=== PATIENT | female | born 1985 | race Hispanic/Latino ===

== ENCOUNTER 2022-05-19 23:35 | Emergency (ER) | payer SELFPAY ==
[~2022-05-19] VITALS: Ht 160 cm; Wt 83.5 kg
--- OUTSIDE RECORDS SUMMARY | 2022-05-20 01:12 | XMS ---
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 VISIT COUNT (12 MO.) 1 [facility] 2 [place] [facility] 1 [facility] TOTAL 4 NOTE: Visits indicate total known visits. ED/UCC VISIT TRACKING (12 MO.) 05/19/2022 23:36 [facility] Edward TYPE: Emergency COMPLAINT: - RIGHT [facility]J [facility] DIAGNOSES: - Nausea - Right upper quadrant pain - Other acute postprocedural pain - Other acute postprocedural pain 08/15/2021 13:30 [place] [facility] [place] TYPE: Emergency DIAGNOSES: - Calculus of bile duct without cholangitis or cholecystitis without obstruction - Personal history of nicotine dependence - Contact with and (suspected) exposure to COVID-19 - Calculus of bile duct without cholangitis or cholecystitis without obstruction 08/08/2021 00:39 [facility] TYPE: Emergency DIAGNOSES: - abd pain - Left upper quadrant pain INPATIENT VISIT TRACKING (12 MO.) No inpatient visits to display in this time frame [id number]
== END 2022-05-20 00:15 | disposition home or self-care (01) ==
LOC: ED 23:35
DX: S83.91XA Sprain of unspecified site of right knee, initial encounter (principal); W19.XXXA Unspecified fall, initial encounter
CPT/HCPCS: 73560; 99283-25

== ENCOUNTER 2025-02-17 17:39 | Emergency (ER) | payer SELFPAY ==
[~2025-02-17] VITALS: Ht 160 cm; Wt 100.0 kg
[~2025-02-17 17:39] MED LIST: AMITRIPTYLINE100 MG; MACROBID 100 M100 MG PO; TRAMADOL HCL50 MG PO
[2025-02-17] MEDS ORDERED: ONDANSETRON ODT8 MG PO (20:19)
[2025-02-17] MEDS ORDERED: ALBUTEROL SULFATE 8 GM HOME.PACK INH ONE (20:30)
[2025-02-17] MEDS ORDERED: ONDANSETRON 4 MG HOME.PACK SL ONE (20:30)
[2025-02-17 21:18] VITALS: BP 118/84
--- NOTE | 2025-02-19 10:42 | EKG ---
[facility] [address] [place] [address] Signed Normal sinus rhythm Left bundle branch block Abnormal ECG No previous ECGs available Confirmed by Janelle Dial DO ([id number]) on 02/19/2025 10:42:33 AM Electronically Signed By: JANELLE DIAL DO 02/19/25 104 PATIENT NAME: WALLY CHAVEZ Electrocardiogram DATE OF : 85 PHYSICIAN: JANELLE DIAL DO REPORT #: [id number] REPORT IS CONFIDENTIAL AND NOT TO BE RELEASED WITHOUT AUTHORIZATION
== END 2025-02-17 21:19 | disposition home or self-care (01) ==
LOC: ED 17:39
DX: U07.1 COVID-19 (principal); Z79.899 Other long term (current) drug therapy
CPT/HCPCS: 93005; 93010; 99284; A9270

== ENCOUNTER 2025-03-04 22:52 | Emergency (ER) | payer OTHER ==
[~2025-03-04] VITALS: Ht 160 cm; Wt 86.3 kg
[~2025-03-04 22:52] MED LIST changes: +ONDANSETRON ODT8 MG PO
--- OUTSIDE RECORDS SUMMARY | 2025-03-04 22:59 | XMS ---
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 No recent Security Events currently on file CRITERIA MET - [facility] - 2 Visits in 30 Days CARE PROVIDERS -, [facility] Dentist: Shear Helper [facility] PHONE: [phone] -[place]- Dentist: Shear Helper Current [facility] PHONE: [phone] [facility] Family [facility] Current [facility] PHONE: [phone] ELISA MANN Nurse Practitioner Current PHONE: Unknown MANNY FAY Physician Commercial Lines Account Assistant: Medical Current PHONE: Unknown Care Guidelines exist for the following facilities: [facility] ( 03/05/2021 ) Liz VISIT COUNT (12 MO.) 2 [facility] TOTAL 3 NOTE: Visits indicate total known visits. ED/UCC VISIT TRACKING (12 MO.) 03/04/2025 22:53 JO[facility] Edward TYPE: Emergency COMPLAINT: - FACIAL NUMBNESS 02/17/2025 17:40 JOAN Edward TYPE: Emergency COMPLAINT: - COLD SYMPTOMS DIAGNOSES: - Cough, unspecified - COVID-19 - Other buttermaker helper (current) drug therapy 09/28/2024 18:03 [facility] [place] TYPE: Emergency COMPLAINT: - INGESTED NON PERSCRIPTION MEDS INPATIENT VISIT TRACKING (12 MO.) No inpatient visits to display in this time frame [id number]
[2025-03-04] MEDS ORDERED: PROCHLORPERAZINE EDISYLATE 10 MG/2 ML VIAL IV ONE (23:30)
[2025-03-04] MEDS ORDERED: KETOROLAC TROMETHAMINE 30 MG/ML VIAL IV ONE (23:30)
[2025-03-05 02:50] VITALS: BP 117/78
== END 2025-03-05 02:55 | disposition home or self-care (01) ==
LOC: ED 22:52
DX: G43.909 Migraine, unspecified, not intractable, without status migrainosus (principal); G93.5 Compression of brain
CPT/HCPCS: 70450; 96374; 96375; 99284-25; J0780; J1200; J1885